=== PATIENT | female | born 1980 | race Caucasian/White ===

== ENCOUNTER 2023-03-18 13:58 | Outpatient (CLI) | payer OTHER ==
[2023-03-18 14:20] LABS: ABSOLUTE RETICS # AUTO 0.058 10^6/uL (0.020-0.110); BASOPHILS % (AUTO) 0.6 %; EOSINOPHILS # (AUTO) 0.1 10^3/uL (0.0-0.7); EOSINOPHILS % (AUTO) 2.4 %; HCT - HEMATOCRIT 37.6 % (37.0-47.0); HGB - HEMOGLOBIN 12.2 g/dL (12.0-16.0); LYMPHOCYTES # (AUTO) 1.6 10^3/uL (1.5-3.5); LYMPHOCYTES % (AUTO) 31.5 %; MEAN CORPUSCULAR HEMOGLOBIN 28.2 pg (27.0-31.0); MEAN CORPUSCULAR HGB CONC 32.4 g/dL (32.0-36.0); MEAN CORPUSCULAR VOLUME 86.8 fL (81.0-99.0); MEAN PLATELET VOLUME 10.4 fL (7.9-10.8); MONOCYTES # (AUTO) 0.5 10^3/uL (0.0-1.0); MONOCYTES % (AUTO) 8.9 %; NEUTROPHILS # (AUTO) 2.8 10^3/uL (1.5-6.6); NEUTROPHILS % (AUTO) 56.2 %; PLT - PLATELET COUNT 255 10^3/uL (130-450); RED BLOOD COUNT 4.33 10^6/uL (4.20-5.40); RED CELL DISTRIBUTION WIDTH 13.2 % (12.0-15.0); RETICULOCYTE COUNT % (AUTO) 1.34 % (0.5-2.3)
[2023-03-18 14:29] LABS: ALBUMIN 4.7 g/dL (3.2-5.5); ALBUMIN/GLOBULIN RATIO 1.6 (1.0-2.2); BILIRUBIN,TOTAL 0.8 mg/dL (0.2-1.0); CALCIUM 9.9 mg/dL (8.5-10.3); CREATININE 0.8 mg/dL (0.6-1.3); POTASSIUM 3.9 mmol/L (3.5-4.5); TOTAL PROTEIN 7.7 g/dL (6.4-8.9)
[2023-03-18 14:45] LABS: THYROID STIMULATING HORMONE 1.52 uIU/mL (0.34-5.60)
[2023-03-18 14:51] LABS: FERRITIN 8.3 ng/mL (11.0-306.8)
[2023-03-18 14:52] LABS: PROLACTIN 4.77 ng/mL
== END 2023-03-18 13:59 | disposition home or self-care (01) ==
LOC: LAB 13:58
PROVIDERS: ATTEND Internal Medicine
DX: N92.1 Excessive and frequent menstruation with irregular cycle (principal); E61.1 Iron deficiency
CPT/HCPCS: 36415; 80053; 82670; 82728; 83540; 84146; 84439; 84443; 84466; 85025; 85045

== ENCOUNTER 2023-06-13 15:00 | Outpatient (CLI) | payer OTHER ==
--- NOTE | 2023-06-16 16:05 | Mammography Report ---
BILATERAL DIGITAL SCREENING MAMMOGRAM 3D/2D: 06/13/2023 CLINICAL: Routine screening. Mother with breast cancer. No prior exams were available for comparison. Both breasts are heterogeneously dense, which may obscure small masses (category c / 51-75% glandular tissue). No significant masses, calcifications, or other findings are seen in either breast. IMPRESSION: NEGATIVE There is no mammographic evidence of malignancy. A 1 year screening mammogram is recommended. Based on Tyrer-Cuzick model (a risk assessment model), the patient's lifetime risk is 30.9% and her 1 0 year risk is 5.3%. If a patient has an elevated risk, a more comprehensive evaluation should be con sidered and/or a referral to a genetic counselor. The [employer], [employer], and NCCN Guidelines advise the consideration of Breast MRI as an adjunct to screening mammog dez in patients whose "Lifetime risk to develop breast cancer" is 20% or higher. This exam was interpreted at Station ID: [id number]. NOTE: For mammograms, a report in lay terms will be sent to the patient. Approximately 15% of breast malignancies will not be visualized mammographically. In the management of a palpable breast mass, a negative mammogram must not discourage biopsy of a clinically suspicious lesion. Electronically Signed By: Andrew childress/galen:06/16/2023 06:59:36 letter sent: No_Letter ACR BI-RADS Category 1: Negative 3341F PARENCHYMAL PATTERN: (D) - The breast(s) demonstrate(s) heterogeneously dense fibroglandular laine orr. BI-RADS CATEGORY: (1) - 1 Mammogram [id number] 1 year screening LATERALITY: (B)
== END 2023-06-13 15:01 | disposition home or self-care (01) ==
LOC: DI 15:00
DX: Z12.31 Encounter for screening mammogram for malignant neoplasm of breast (principal); R92.333 Mammographic heterogeneous density, bilateral breasts; Z80.3 Family history of malignant neoplasm of breast

== ENCOUNTER 2023-08-18 13:48 | Outpatient (CLI) | payer OTHER ==
[2023-08-18 19:49] LABS: BASOPHILS # (AUTO) 0.1 10^3/uL (0.0-0.1); BASOPHILS % (AUTO) 0.7 %; EOSINOPHILS # (AUTO) 0.1 10^3/uL (0.0-0.7); EOSINOPHILS % (AUTO) 1.7 %; HCT - HEMATOCRIT 40.3 % (37.0-47.0); LYMPHOCYTES # (AUTO) 1.9 10^3/uL (1.5-3.5); MEAN CORPUSCULAR HEMOGLOBIN 27.9 pg (27.0-31.0); MEAN CORPUSCULAR HGB CONC 32.3 g/dL (32.0-36.0); MEAN CORPUSCULAR VOLUME 86.5 fL (81.0-99.0); MEAN PLATELET VOLUME 10.9 fL (7.9-10.8); MONOCYTES # (AUTO) 0.6 10^3/uL (0.0-1.0); MONOCYTES % (AUTO) 8.6 %; NEUTROPHILS # (AUTO) 4.2 10^3/uL (1.5-6.6); NEUTROPHILS % (AUTO) 61.6 %; PLT - PLATELET COUNT 260 10^3/uL (130-450); RED BLOOD COUNT 4.66 10^6/uL (4.20-5.40); RED CELL DISTRIBUTION WIDTH 14.2 % (12.0-15.0); WHITE BLOOD COUNT 6.9 x10^3/uL (4.8-10.8)
[2023-08-18 19:59] LABS: ALBUMIN 4.9 g/dL (3.2-5.5); ALBUMIN/GLOBULIN RATIO 1.8 (1.0-2.2); ALKALINE PHOSPHATASE 54 IU/L (42-121); ALT ALANINE AMINOTRANSFERASE 10 IU/L (10-60); AST ASPARTATE AMINOTRANSFERASE 15 IU/L (10-42); BILIRUBIN,TOTAL 1.3 mg/dL (0.2-1.0); BUN - BLOOD UREA NITROGEN 10 mg/dL (6-20); CALCIUM 9.8 mg/dL (8.5-10.3); CARBON DIOXIDE - CO2 28 mmol/L (21-32); CHLORIDE 105 mmol/L (101-111); CREATININE 0.8 mg/dL (0.6-1.3); CRP - C-REACTIVE PROTEIN < 0.5 mg/dL (<0.5); GFR - MDRD 79 (>89); GLUCOSE 82 mg/dL (74-104); LIPASE 32 U/L (11-82); POTASSIUM 3.9 mmol/L (3.5-4.5); SODIUM 139 mmol/L (135-145); TOTAL PROTEIN 7.7 g/dL (6.4-8.9)
== END 2023-08-18 13:49 | disposition home or self-care (01) ==
LOC: LAB.S 13:48
PROVIDERS: ATTEND Registered Nurse
DX: N93.9 Abnormal uterine and vaginal bleeding, unspecified (principal); R10.32 Left lower quadrant pain
CPT/HCPCS: 36415; 80053; 83690; 85025; 86140

== ENCOUNTER 2023-08-18 20:47 | Outpatient (CLI) | payer OTHER ==
--- NOTE | 2023-08-18 22:21 | Ultrasound Report ---
PROCEDURE: Pelvic Complete INDICATIONS: VAGINAL SPOTTING, LLQ ABD PAIN TECHNIQUE: Real-time transabdominal scanning was performed of the pelvic organs, with image documentation. COMPARISON: None FINDINGS: Uterus: Uterus is anteverted and normal in size at 9.7 x 4.1 x 5.5 cm. The myometrium is homogeneou s. The endometrium measures 4.9 mm in combined thickness. 3 mm endometrial calcifications noted. Ovaries: The right ovary measures 7.6 x 4.9 x 7.0 cm, with a calculated ovarian volume of 136 cc. L arge simple cysts within the right ovary measuring 6.1 x 4.1 x 5.4 cm. Flow is noted to the right ova ry. The left ovary measures 1.7 x 1.6 x 2.6 cm, with a calculated ovarian volume of 3.5 cc. The ovar ies have a normal sonographic appearance. Less than 12 follicles can be seen in each ovary. No adne xal masses are seen. No cystic lesions measuring greater than 3 cm. Other: No free pelvic fluid. IMPRESSION: 1.Endometrium is normal in thickness. 3 mm endometrial opacification is noted, nonspecific. 2.Large right ovarian simple cyst measuring 6.1 cm. Recommend 6-12 week follow-up ultrasound. Normal blood flow is seen to the right ovary. Reviewed by: Anup Dowling MD on 08/18/2023 10:20 PM PST Approved by: Anup Dowling MD on 08/18/2023 10:20 PM PST Station ID: [id number]
== END 2023-08-18 20:48 | disposition home or self-care (01) ==
LOC: DI 20:47
PROVIDERS: ATTEND Registered Nurse
DX: N83.291 Other ovarian cyst, right side (principal)

== ENCOUNTER 2023-10-24 16:14 | Outpatient (CLI) | payer OTHER ==
--- NOTE | 2023-10-24 17:54 | Ultrasound Report ---
PROCEDURE: Pelvic Complete INDICATIONS: OVARIAN CYST TECHNIQUE: Real-time transabdominal scanning was performed of the pelvic organs, with image documentation. COMPARISON: 08/18/2023 FINDINGS: Uterus: Uterus is anteverted and normal in size at 9.2 x 4.0 x 5.3 cm. The myometrium is homogeneou s. The endometrium measures 11 mm in combined thickness. Redemonstration of 2 mm endometrial calcif ication. Suggestion of arcuate morphology of the uterus. Ovaries: The right ovary measures 3.3 x 1.9 x 3.5 cm, with a calculated ovarian volume of 11 cc. Th e left ovary measures 3.5 x 1.7 x 2.6 cm, with a calculated ovarian volume of 7.4 cc. The ovaries lemus ve a normal sonographic appearance. Less than 12 follicles can be seen in each ovary. No adnexal ma sses are seen. No cystic lesions measuring greater than 3 cm. Previously described 6.1 cm simple righ t ovarian cyst has resolved. Other: No free pelvic fluid. IMPRESSION: Normal sonographic evaluation of the pelvis. Interval resolution of previously described 6.1 cm simpl e right ovarian cyst. Reviewed by: Andrew Reed MD on 10/24/2023 4:52 PM JANET Approved by: Andrew Reed MD on 10/24/2023 4:52 PM JANET Station ID: [id number]
== END 2023-10-24 16:15 | disposition home or self-care (01) ==
LOC: DI 16:14
PROVIDERS: ATTEND Obstetrics & Gynecology
DX: N83.291 Other ovarian cyst, right side (principal)